=== PATIENT | male | born 2000 | race Caucasian/White ===

== ENCOUNTER 2020-02-01 22:14 | Emergency (ER) | payer MEDICAID ==
[~2020-02-01] VITALS: Ht 177.8 cm; Wt 113.0 kg
[2020-02-01] MEDS ORDERED: KETOROLAC 60MG/2ML VIAL IM ONE (23:00)
[2020-02-01] MEDS ORDERED: CYCLOBENZAPRINE 10MG TABLET PO ONE (23:00)
[2020-02-02] VITALS: BP 155/98
== END 2020-02-02 00:10 | disposition home or self-care (01) ==
LOC: ER 22:14
DX: G89.29 Other chronic pain (principal); M54.5 Low back pain
CPT/HCPCS: 96372; 99283; J1885